=== PATIENT | female | born 1965 | race Caucasian/White ===

== ENCOUNTER → 2018-11-09 14:10 | Outpatient (CLI) | payer OTHER, SELFPAY ==
--- NOTE | 2018-11-09 | DI.MG.S_ITS ---
BILATERAL DIGITAL SCREENING MAMMOGRAM 3D/2D WITH CAD: 11/09/2018 CLINICAL: Routine screening. Comparison is made to exams dated: 06/06/2016 mammogram, 10/21/2017 mammogram - [facility], and 10/28/2014 mammogram - [facility]. There are scattered fibroglandular elements in both breasts. Current study was also evaluated with a Computer Aided Detection (CAD) system. No significant masses, calcifications, or other findings are seen in either breast. There has been no significant interval change. IMPRESSION: NEGATIVE There is no mammographic evidence of malignancy. A 1 year screening mammogram is recommended. This exam was interpreted at Station ID: [id number]. NOTE: For mammograms, a report in lay terms will be sent to the patient. Approximately 15% of breast malignancies will not be visualized mammographically. In the management of a palpable breast mass, a negative mammogram must not discourage biopsy of a clinically suspicious lesion. Electronically Signed By: France hightower/audelia:11/09/2018 16:56:17 letter sent: Normal Exam ACR BI-RADS Category 1: Negative 3341F
== END ==
PROVIDERS: PCP Family Medicine; Visit Provider Family Medicine
DX: Z12.31 Encounter for screening mammogram for malignant neoplasm of breast (principal)
CPT/HCPCS: 77063; 77067

== ENCOUNTER → 2021-06-14 15:04 | Outpatient (CLI) | payer OTHER, SELFPAY | PROVIDERS: PCP Family Medicine; Referring Provider Family Medicine; Visit Provider Family Medicine | DX: R30.0 Dysuria (principal) | CPT/HCPCS: 87086 ==

== ENCOUNTER → 2021-10-20 14:13 | Outpatient (CLI) | payer OTHER, SELFPAY ==
--- NOTE | 2021-10-20 | DI.MG.S_ITS ---
BILATERAL DIGITAL SCREENING MAMMOGRAM 3D/2D WITH CAD: 10/20/2021 CLINICAL: Routine screening. Comparison is made to exams dated: 11/09/2018 mammogram, 10/21/2017 mammogram, and 06/06/2016 mammogram - [facility]. There are scattered fibroglandular elements in both breasts. Current study was also evaluated with a Computer Aided Detection (CAD) system. There is a new asymmetry in the right breast anterior depth medial region seen on the craniocaudal view only. There also is a new asymmetry in the right breast middle depth medial region seen on the craniocaudal view only. No other significant masses, calcifications, or other findings are seen in either breast. IMPRESSION: INCOMPLETE: NEEDS ADDITIONAL IMAGING EVALUATION The new asymmetry in the right breast anterior depth medial region seen on the craniocaudal view only is indeterminate. Additional views with possible ultrasound are recommended. The new asymmetry in the right breast middle depth medial region seen on the craniocaudal view only is indeterminate. Additional views with possible ultrasound are recommended. This exam was interpreted at Station ID: [id number]. NOTE: For mammograms, a report in lay terms will be sent to the patient. Approximately 15% of breast malignancies will not be visualized mammographically. In the management of a palpable breast mass, a negative mammogram must not discourage biopsy of a clinically suspicious lesion. Electronically Signed By: Alex Coyne M.D., jr/audelia:10/20/2021 15:40:03 letter sent: Additional Imaging Needed ACR BI-RADS Category 0: Incomplete 3340F
== END ==
PROVIDERS: PCP Physician Assistant; Referring Provider Physician Assistant; Visit Provider Physician Assistant
DX: Z12.31 Encounter for screening mammogram for malignant neoplasm of breast (principal)
CPT/HCPCS: 77063; 77067

== ENCOUNTER → 2021-10-21 09:53 | Outpatient (CLI) | payer OTHER, SELFPAY ==
[2021-10-21 18:42] LABS: Add Manual Diff / Slide Review NO; Basophils Absolute Auto 100 /uL (0-100); Basophils Percent Auto 0.6 % (0-2); Eosinophils Absolute Auto 100 /uL (0-450); Eosinophils Percent Auto 0.9 % (2-4); Hematocrit 42.3 % (36-46); Lymphocytes Absolute Auto 1700 /uL (1100-4500); Lymphocytes Percent Auto 17.9 % (25-40); Mean Corpuscular HGB Conc 33.1 % (30-36); Mean Corpuscular Hemoglobin 30.7 PG (26-34); Mean Corpuscular Volume 92.8 fL (80-100); Monocytes Absolute Auto 600 /uL (0-900); Monocytes Percent Auto 6.5 % (3-14); Neutrophils Absolute Auto 6800 /uL (1500-7000); Neutrophils Percent Auto 74.1 % (50-75); Platelet Count 350 X10^3/uL (150-400); Red Blood Cell Count 4.56 X10^6/uL (4.0-5.2); White Blood Cell Count 9.2 X10^3/uL (4.5-11.0)
[2021-10-21 19:02] LABS: Alanine Aminotransferase 32 IU/L (<35); Albumin 4.2 g/dL (3.5-5.0); Albumin Globulin Ratio 1.4 (1.0-2.8); Alkaline Phosphatase 114 U/L (38-126); Aspartate Aminotransferase 28 IU/L (14-36); Bilirubin Total 0.7 mg/dL (0.2-1.3); Blood Urea Nitrogen 16 mg/dL (7-17); Calcium 9.4 mg/dL (8.4-10.2); Carbon Dioxide 27 mmol/L (22-32); Chloride 105 mmol/L (98-107); Cholesterol 245 mg/dL (140-199); Estimated Glomerular Filt Rate > 60 mL/min (>60); Globulin 3.1 g/dL (1.7-4.1); Glucose 107 mg/dL (70-100); HDL Cholesterol 88 mg/dL (40-60); HEMOLYSIS < 15 (0-50); LDL Cholesterol Calculated 141 mg/dL (<100); Potassium 4.3 mmol/L (3.4-5.1); Sodium 139 mmol/L (137-145); Total Protein 7.3 g/dL (6.3-8.2); Triglycerides 82 mg/dL (35-150)
[2021-10-25 09:25] LABS: TSH w/ Reflex to FT4 1.58 uIU/mL (0.47-4.68)
== END ==
PROVIDERS: PCP Physician Assistant; Visit Provider Physician Assistant
DX: Z13.220 Encounter for screening for lipoid disorders (principal); Z79.899 Other long term (current) drug therapy
CPT/HCPCS: 80053; 80061; 84443; 85025

== ENCOUNTER → 2021-12-01 09:35 | Outpatient (CLI) | payer OTHER, SELFPAY ==
--- NOTE | 2021-12-01 | DI.MG.S_ITS ---
UNILATERAL RIGHT DIGITAL DIAGNOSTIC MAMMOGRAM 3D/2D WITH ADDITIONAL VIEWS: 12/01/2021 CLINICAL: Patient returns today to evaluate an asymmetries in the right breast. Comparison is made to exams dated: 10/20/2021 mammogram, 11/09/2018 mammogram, and 10/21/2017 mammogram - [facility]. There are scattered fibroglandular elements in right breast. There is a focal asymmetry in the right breast at 3 o'clock middle depth. This is seen in additional views. There also is a focal asymmetry in the right breast at 4 o'clock posterior depth. This is seen in additional views. No other significant masses or calcifications are seen in the breast. IMPRESSION: INCOMPLETE: NEEDS ADDITIONAL IMAGING EVALUATION The focal asymmetry in the right breast at 3 o'clock middle depth is indeterminate. The focal asymmetry in the right breast at 4 o'clock posterior depth is indeterminate. A targeted ultrasound of the right breast is recommended and will be performed immediately following this exam. This exam was interpreted at Station ID: [id number]. NOTE: For mammograms, a report in lay terms will be sent to the patient. Approximately 15% of breast malignancies will not be visualized mammographically. In the management of a palpable breast mass, a negative mammogram must not discourage biopsy of a clinically suspicious lesion. Electronically Signed By: Shira shipman/:12/01/2021 11:09:31 ACR BI-RADS Category 0: Incomplete 3340F
--- NOTE | 2021-12-01 09:36 | DI.US.S_ITS ---
ULTRASOUND OF RIGHT BREAST: 12/01/2021 CLINICAL: Patient returns today to evaluate a focal asymmetry in the right breast. Comparison is made to exams dated: 12/01/2021 mammogram and 10/20/2021 mammogram - [facility]. Color flow ultrasound of the right breast was performed on the areas of interest. Villarreal scale images of the real-time examination were reviewed. There is a benign irregular cyst in the right breast at 3 o'clock middle depth. This irregular cyst is anechoic. This correlates with mammography findings. There also is a benign cluster of 2 simple cysts in the right breast at 4 o'clock posterior depth. This cluster of simple cysts is anechoic. This correlates with mammography findings. IMPRESSION: BENIGN There is no sonographic evidence of malignancy. The irregular cyst in the right breast at 3 o'clock middle depth is benign. The cluster of 2 simple cysts in the right breast at 4 o'clock posterior depth is benign. A 1 year screening mammogram is recommended. This exam was interpreted at Station ID: [id number]. Electronically Signed By: Shira shipman/:12/01/2021 11:11:36 letter sent: Normal Exam Ultrasound BI-RADS: 2 Benign
== END ==
PROVIDERS: PCP Physician Assistant; Referring Provider Physician Assistant; Visit Provider Physician Assistant
DX: R92.8 Other abnormal and inconclusive findings on diagnostic imaging of breast (principal); N60.01 Solitary cyst of right breast; N64.89 Other specified disorders of breast
CPT/HCPCS: 76642; 77065; G0279

== ENCOUNTER 2022-03-07 11:57 | Emergency (ER) | payer OTHER, SELFPAY ==
[2022-03-07 12:36] VITALS: BP 132/74; PULSE 80; RESP 16; TEMP 36.4; O2SAT 100; BMI 24.3
[2022-03-07 18:33] VITALS: BP 129/80; PULSE 70; RESP 16; O2SAT 99
--- NOTE | 2022-03-07 19:09 | ED_ITS ---
HPI - Back Pain/Injury General Chief Complaint: Back Pain/Injury Stated Complaint: Back pain lower left, Nausea Time Seen by Provider: 03/07/22 18:46 Source: patient Mode of arrival: Family Vehicle Limitations: no limitations History of Present Illness HPI Narrative: 57-year-old female who is here for evaluation of left lower back pain. She states the symptoms been going on for the past week. She has been taking Naprosyn at home. 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 Does have some discomfort in the front of both of her legs. The pain is not worse with touching but more with moving. No fevers. No urinary symptoms. No change in bowel habits. No skin changes. She has had back pain requiring surgery in the past. Related Data Home Medications Medication Instructions Recorded Confirmed Fluticasone Propionate (FLONASE) 1 spray intranasal QDAY ##0 04/05/12 10/25/21 albuterol sulfate 90 mcg/actuation 2 puff INH ##8.5 04/05/12 10/25/21 aerosol inhaler (Proventil HFA) Previous Rx's Medication Instructions Recorded acyclovir 400 mg tablet See Rx Instructions .Route 10/18/21 .COMPLEX #50 tabs duloxetine 30 mg capsule,delayed 30 mg PO DAILY #90 caps 12/22/21 release cyclobenzaprine 10 mg tablet 10 mg PO TID PRN muscle spasm #21 03/07/22 tabs lidocaine 5 % topical patch 1 patch topical DAILY #15 ea 03/07/22 prednisone 20 mg tablet 20 mg PO DAILY 7 days #7 tabs 03/07/22 zolpidem 5 mg tablet 5 mg PO BEDTIME PRN insomnia #30 03/07/22 tabs Allergies Allergy/AdvReac Type Severity Reaction Status Date / Time oxycodone Allergy Unknown Verified 06/14/21 14:46 acetaminophen [From Vicodin] AdvReac Intermediate Hallucinati Verified 06/14/21 14:46 ons hydrocodone [From Vicodin] AdvReac Intermediate Hallucinati Verified 06/14/21 14:46 ons LATEX Allergy Severe ASTHMA AND Uncoded 06/14/21 14:46 ITCHING PCN (PENICILLIN) Allergy Severe HIVES Uncoded 06/14/21 14:46 SULFA Allergy Intermediate RASH Uncoded 06/14/21 14:46 Review of Systems Constitutional Constitutional: Denies fever(s) and Denies headache(s) ENT Ears, Nose, Mouth, and Throat: Denies headache(s) Cardiovascular Cardiovascular: Reports system reviewed and no additional complaints, except as documented Respiratory Respiratory: Reports system reviewed and no additional complaints, except as documented Gastrointestinal Gastrointestinal: Reports system reviewed and no additional complaints, except as documented Genitourinary Genitourinary: Reports system reviewed and no additional complaints, except as documented Musculoskeletal Musculoskeletal: Reports system reviewed and no additional complaints, except as documented Integumentary/Breasts Skin/Breast: Reports system reviewed and no additional complaints, except as documented Neurologic Neurologic: Reports system reviewed and no additional complaints, except as documented and Denies headache(s) Hematologic/Lymphatic On Anticoagulants: No Patient History Medical History Insomnia, unspecified Plantar wart Uterine myoma Social History Smoking Status: Never smoker Smoking Status: Never smoker alcohol intake frequency: holidays/special occasions only Substance Use Type: does not use Exam Initial Vital Signs Initial Vital Signs: Vital Signs Temperature 97.6 F 03/07/22 12:36 Pulse Rate 80 03/07/22 12:36 Respiratory Rate 16 03/07/22 12:36 Blood Pressure 132/74 03/07/22 12:36 Pulse Oximetry 100 03/07/22 12:36 Oxygen Delivery Method 03/07/22 12:36 [facility] Head: normal to inspection and normocephalic Resp Effort & Inspection: normal respiratory effort Cardio Rate: regular rate GI Inspection: normal to inspection Palpation: soft and No tender Back/Spine/Pelvis Thoracic/Lumbar Spine: No paraspinal tenderness and No lumbar spinal tenderness Skin General: no rashes or lesions noted Neuro General: patient alert, patient awake and moves all extremities Sensory Exam: no sensory deficits noted Extrem Other: No tenderness to palpation of her lumbar spine. We can reproduce the the discomfort by flexing the hip. Some discomfort with internal and external rotation. Left knee is unremarkable. Course Orders Ordered: ED Orders 03/07/22 19:10 XR lumbar spine 2-3V Stat 03/07/22 20:25 Urine Culture Stat Urine Microscopic Stat Discontinued Medications Ketorolac Tromethamine (Ketorolac 30 Mg/Ml Vial) 30 mg IM NOW ONE Stop: 03/07/22 19:11 Last Admin: 03/07/22 19:51 Dose: 30 mg Documented By: MARJORIE Prednisone (Prednisone 20 Mg Tablet) 20 mg PO NOW ONE Stop: 03/07/22 21:05 Last Admin: 03/07/22 21:12 Dose: 20 mg Documented By: AT Vital Signs Vital signs: Vital Signs - 8 hr 03/07/22 18:33 Pulse Rate 70 Respiratory Rate 16 Blood Pressure 129/80 Pulse Oximetry 99 Oxygen Delivery Method Room Air MDM - Back Pain/Injury Lab Data Labs: Lab Results 03/07/22 Range/Units 20:25 Urine RBC 5-10/hpf H (0-5/HPF) Urine WBC 10-30/hpf H (0-5/HPF) Ur Squamous Epith Cells 0-1 /hpf (0-5/HPF) Urine Bacteria Occasional (0-1) (None) Ur Culture Indicated? Specimen cultured Urine Dip Bedside Urine Glucose Negative Bedside Urine Bilirubin - Negative Bedside Urine Ketone - Negative Urine Specific [place] 1.015 Bedside Urine Occult Blood - Negative Bedside Urine pH 6.0 Bedside Urine Protein +/- 15 Bedside Urine Urobilinogen - Negative Bedside Urine Nitrite - Negative Bedside Urine Leukocytes ++ 125 Esterase Imaging Data lumbar spine X-ray: Radiologist's Impression: [place] [address] XRay Report Signed Patient: Magda Jordan MR#: [id number] : 1965 Acct:[id number] Age/Sex: 57 / F Date of Service: 03/07/22 Loc: ED Accession Number: [id number] ?? Procedure: XR lumbar spine 2-3V Ordering Provider: Narayan Gómez D.O. PROCEDURE:? XR LUMBAR SPINE 2-3V ? INDICATIONS:? LBP hx of surgery ? TECHNIQUE:? Three views of the lumbar spine were acquired.? ? COMPARISON:? None. ? FINDINGS:? ? Bones:? Five [id number] vertebrae are present.? No vertebral body fractures.? Moderately severe disc height loss at L5-S1.? There is normal bony alignment.? No suspicious bony lesions.? ? Soft tissues:? Overlying bowel gas pattern is normal.? No suspicious soft tissue calcifications.? ? ? IMPRESSION:? Severe disc height loss L5-S1.? Otherwise normal lumbar spine. ? ? Dictated by: France Tenorio M.D. on 03/07/2022 at 20:07 ? ? Approved by: France Tenorio M.D. on 03/07/2022 at 20:10?? MDM Narrative Medical decision making narrative: No acute changes on the lumbar spine x-ray. Low suspicion for fracture. Low suspicion for cauda equina. No indication for MRI out of the emergency department. Will provide symptom treatment. Have patient follow-up with primary doctor to discuss further outpatient treatment/evaluation to include potentially physical therapy/orthopedics or advanced imaging such as MRI. She expressed understanding and agreement. Discharge Plan Departure Patient Disposition: Home Clinical Impression: Low back pain Instructions: DI for Low Back Pain Activity Restrictions/Additional Instructions: I do recommend that you take the medications as directed. Contact your primary doctor as he will most likely need referrals for further evaluation treatment to include seeing physical therapy and potentially further advanced radiologic studies such as an MRI. Return to the emergency department for any new symptoms. Prescriptions: New prednisone 20 mg tablet 20 mg PO DAILY 7 Days Qty: 7 0RF cyclobenzaprine 10 mg tablet 10 mg PO TID PRN (Reason: muscle spasm) Qty: 21 0RF lidocaine 5 % adhesive patch,medicated 1 patch topical DAILY Qty: 15 0RF Rx Instructions: leave on most painful area for up to 12 hrs No Action albuterol sulfate [Proventil HFA] 90 MCG/PUFF HFA aerosol inhaler 2 puff INH Qty: 8.5 Fluticasone Propionate (FLONASE) 1 spray Intranasal QDAY Qty: 0 acyclovir 400 mg tablet See Rx Instructions .ROUTE .COMPLEX Qty: 50 3RF Dose Instruction: TAKE ONE TABLET BY MOUTH EVERY 4 HOURS WHILE AWAKE AT FIRST ONSET OF COLD SORE Rx Instructions: TAKE ONE TABLET BY MOUTH EVERY 4 HOURS WHILE AWAKE AT FIRST ONSET OF COLD SORE duloxetine 30 mg capsule,delayed release(DR/EC) 30 mg PO DAILY Qty: 90 1RF zolpidem 5 mg tablet 5 mg PO BEDTIME PRN (Reason: insomnia) Qty: 30 0RF Referrals: Demetria Carpenter PA-C [Primary Care Provider] - Visit Report Forms: Patient Portal/API
--- NOTE | 2022-03-07 19:10 | DI.RAD.S_ITS ---
PROCEDURE: XR LUMBAR SPINE 2-3V INDICATIONS: LBP hx of surgery TECHNIQUE: Three views of the lumbar spine were acquired. COMPARISON: None. FINDINGS: Bones: Five [id number] vertebrae are present. No vertebral body fractures. Moderately severe disc height loss at L5-S1. There is normal bony alignment. No suspicious bony lesions. Soft tissues: Overlying bowel gas pattern is normal. No suspicious soft tissue calcifications. IMPRESSION: Severe disc height loss L5-S1. Otherwise normal lumbar spine. Dictated by: France Tenorio M.D. on 03/07/2022 at 20:07 Approved by: France Tenorio M.D. on 03/07/2022 at 20:10
[2022-03-07] MEDS: KETOROLAC 30 MG/ML VIAL IM (19:51)
[2022-03-07 21:01] LABS: Bacteria Urine Occasional (0-1); Culture Indicated Urine Specimen Cultured; RBC Urine 5-10/HPF (0-5/HPF); Squamous Epithelial Cell Urine 0-1 /HPF (0-5/HPF); WBC Urine 10-30/HPF (0-5/HPF)
[2022-03-07] MEDS: predniSONE 20 MG TABLET PO (21:12)
== END 2022-03-07 21:16 | disposition home or self-care (01) ==
PROVIDERS: Emergency Provider Emergency Medicine; PCP Physician Assistant
DX: M54.50 Low back pain, unspecified (principal)
CPT/HCPCS: 72100; 81003; 81015; 87086; 96372; 99283; J1885

== ENCOUNTER → 2022-05-04 11:08 | Outpatient (CLI) | payer OTHER, SELFPAY ==
[2022-05-04 20:46] LABS: Add Manual Diff / Slide Review NO; Basophils Absolute Auto 100 /uL (0-100); Basophils Percent Auto 1.1 % (0-2); Eosinophils Absolute Auto 200 /uL (0-450); Eosinophils Percent Auto 2.6 % (2-4); Hematocrit 36.6 % (36-46); Hemoglobin 11.4 g/dL (12.0-16.0); Lymphocytes Absolute Auto 2900 /uL (1100-4500); Lymphocytes Percent Auto 43.1 % (25-40); Mean Corpuscular HGB Conc 31.1 % (30-36); Monocytes Absolute Auto 400 /uL (0-900); Monocytes Percent Auto 6.6 % (3-14); Neutrophils Absolute Auto 3200 /uL (1500-7000); Neutrophils Percent Auto 46.6 % (50-75); Platelet Count 439 X10^3/uL (150-400); White Blood Cell Count 6.8 X10^3/uL (4.5-11.0)
[2022-05-04 20:50] LABS: Alanine Aminotransferase 26 IU/L (<35); Albumin 4.5 g/dL (3.5-5.0); Albumin Globulin Ratio 1.4 (1.0-2.8); Alkaline Phosphatase 121 U/L (38-126); Aspartate Aminotransferase 37 IU/L (14-36); BUN Creatinine Ratio 18.7 (6-22); Bilirubin Total 0.3 mg/dL (0.2-1.3); Blood Urea Nitrogen 14 mg/dL (7-17); Calcium 10.2 mg/dL (8.4-10.2); Carbon Dioxide 27 mmol/L (22-32); Chloride 102 mmol/L (98-107); Estimated Glomerular Filt Rate > 60 mL/min (>60); Globulin 3.3 g/dL (1.7-4.1); Glucose 93 mg/dL (70-100); HEMOLYSIS < 15 (0-50); Potassium 4.9 mmol/L (3.4-5.1); Sodium 141 mmol/L (137-145); Total Protein 7.8 g/dL (6.3-8.2)
[2022-05-04 21:20] LABS: TSH w/ Reflex to FT4 3.74 uIU/mL (0.47-4.68)
[2022-05-04 21:23] LABS: Ferritin 25 ng/mL (11-264)
== END ==
PROVIDERS: PCP Physician Assistant; Visit Provider Physician Assistant
DX: D64.9 Anemia, unspecified (principal); R42 Dizziness and giddiness
CPT/HCPCS: 80053; 82728; 84443; 85025

== ENCOUNTER → 2022-09-19 08:08 | Outpatient (CLI) | payer OTHER, SELFPAY ==
[2022-09-19 20:46] LABS: Add Manual Diff / Slide Review NO; Basophils Absolute Auto 100 /uL (0-100); Basophils Percent Auto 0.6 % (0-2); Eosinophils Absolute Auto 100 /uL (0-450); Eosinophils Percent Auto 1.4 % (2-4); Hematocrit 41.2 % (36-46); Hemoglobin 13.6 g/dL (12.0-16.0); Lymphocytes Absolute Auto 4200 /uL (1100-4500); Lymphocytes Percent Auto 42.2 % (25-40); Mean Corpuscular Hemoglobin 30.3 PG (26-34); Mean Corpuscular Volume 92.1 fL (80-100); Monocytes Absolute Auto 500 /uL (0-900); Monocytes Percent Auto 5.3 % (3-14); Neutrophils Absolute Auto 5100 /uL (1500-7000); Neutrophils Percent Auto 50.5 % (50-75); Platelet Count 369 X10^3/uL (150-400); Red Blood Cell Count 4.47 X10^6/uL (4.0-5.2); Red Cell Distribution Width 15.6 % (11.6-14.8)
[2022-09-19 20:53] LABS: HEMOLYSIS < 15 (0-50); Iron 91 ug/dL (37-170)
[2022-09-19 20:57] LABS: Cholesterol 225 mg/dL (140-199); HDL Cholesterol 73 mg/dL (40-60); LDL Cholesterol Calculated 138 mg/dL (<100); Triglycerides 68 mg/dL (35-150)
[2022-09-19 20:58] LABS: Alanine Aminotransferase 23 IU/L (<35); Albumin 3.8 g/dL (3.5-5.0); Albumin Globulin Ratio 1.2 (1.0-2.8); Alkaline Phosphatase 147 U/L (38-126); Aspartate Aminotransferase 23 IU/L (14-36); BUN Creatinine Ratio 22.5 (6-22); Bilirubin Total 0.5 mg/dL (0.2-1.3); Blood Urea Nitrogen 16 mg/dL (7-17); Calcium 9.5 mg/dL (8.4-10.2); Carbon Dioxide 30 mmol/L (22-32); Chloride 104 mmol/L (98-107); Estimated Glomerular Filt Rate > 60 mL/min (>60); Globulin 3.2 g/dL (1.7-4.1); Glucose 95 mg/dL (70-100); HEMOLYSIS < 15 (0-50); Potassium 4.1 mmol/L (3.4-5.1); Sodium 140 mmol/L (137-145)
[2022-09-19 21:05] LABS: Percent Iron Saturation 27 % (15-50); Total Iron Binding Capacity 335 ug/dL (265-497); Transferrin 260 mg/dL (206-381)
[2022-09-19 22:56] LABS: Ferritin 44 ng/mL (11-264)
== END ==
PROVIDERS: PCP Physician Assistant; Visit Provider Physician Assistant
DX: D64.9 Anemia, unspecified (principal); E78.00 Pure hypercholesterolemia, unspecified
CPT/HCPCS: 80053; 80061; 82728; 83540; 83550; 85025

== ENCOUNTER → 2022-09-23 09:44 | Outpatient (CLI) | payer OTHER, SELFPAY | PROVIDERS: PCP Physician Assistant; Visit Provider Physician Assistant Medical | DX: N39.0 Urinary tract infection, site not specified (principal) | CPT/HCPCS: 87086 ==

== ENCOUNTER → 2022-10-06 11:55 | Outpatient (CLI) | payer OTHER, SELFPAY ==
[2022-10-06 21:12] LABS: Bacteria Urine None Seen; Culture Indicated Urine Cult Not Indicated; RBC Urine None Seen (0-5/HPF); WBC Urine None Seen (0-5/HPF)
== END ==
PROVIDERS: PCP Physician Assistant; Visit Provider Physician Assistant Medical
DX: R31.9 Hematuria, unspecified (principal)
CPT/HCPCS: 81015

== ENCOUNTER → 2022-10-14 12:29 | Outpatient (CLI) | payer OTHER, SELFPAY | PROVIDERS: PCP Physician Assistant; Visit Provider Physician Assistant Medical | DX: N39.0 Urinary tract infection, site not specified (principal); R31.9 Hematuria, unspecified | CPT/HCPCS: 87086 ==

== ENCOUNTER → 2022-12-19 13:57 | Outpatient (CLI) | payer OTHER, SELFPAY ==
--- NOTE | 2022-12-19 14:00 | DI.MG.S_ITS ---
BILATERAL DIGITAL SCREENING MAMMOGRAM 3D/2D WITH CAD: 12/19/2022 CLINICAL: Routine screening. Comparison is made to exams dated: 10/20/2021 mammogram, 11/09/2018 mammogram, and 10/21/2017 mammogram - [facility]. There are scattered areas of fibroglandular density in both breasts (category b / 25%-50% glandular tissue). Current study was also evaluated with a Computer Aided Detection (CAD) system. No significant masses, calcifications, or other findings are seen in either breast. There has been no significant interval change. IMPRESSION: NEGATIVE There is no mammographic evidence of malignancy. A 1 year screening mammogram is recommended. Based on the Tyrer Cuzick model (a risk assessment model) the patient's lifetime risk is 7.3% and her 10 year risk is 2.2%. According to the ACR, ACS, and NCCN guidelines, an annual breast MRI exam along with mammogram is recommended if the patient's lifetime risk is 20% or greater. This exam was interpreted at Station ID: [id number]. NOTE: For mammograms, a report in lay terms will be sent to the patient. Approximately 15% of breast malignancies will not be visualized mammographically. In the management of a palpable breast mass, a negative mammogram must not discourage biopsy of a clinically suspicious lesion. Electronically Signed By: David godoy/audelia:12/19/2022 14:40:59 letter sent: Normal Exam ACR BI-RADS Category 1: Negative 3341F
== END ==
PROVIDERS: PCP Physician Assistant; Referring Provider Physician Assistant; Visit Provider Physician Assistant
DX: Z12.31 Encounter for screening mammogram for malignant neoplasm of breast (principal)
CPT/HCPCS: 77063; 77067

== ENCOUNTER → 2023-01-02 14:32 | Outpatient (CLI) | payer OTHER, SELFPAY ==
[2023-01-02 20:12] LABS: Add Manual Diff / Slide Review NO; Basophils Absolute Auto 0 /uL (0-100); Basophils Percent Auto 0.4 % (0-2); Eosinophils Absolute Auto 200 /uL (0-450); Eosinophils Percent Auto 1.5 % (2-4); Hematocrit 45.1 % (36-46); Hemoglobin 15.2 g/dL (12.0-16.0); Lymphocytes Absolute Auto 3100 /uL (1100-4500); Lymphocytes Percent Auto 31.9 % (25-40); Mean Corpuscular HGB Conc 33.7 % (30-36); Mean Corpuscular Hemoglobin 32.2 PG (26-34); Mean Corpuscular Volume 95.6 fL (80-100); Monocytes Absolute Auto 600 /uL (0-900); Neutrophils Absolute Auto 5900 /uL (1500-7000); Neutrophils Percent Auto 60.2 % (50-75); Platelet Count 340 X10^3/uL (150-400); Red Blood Cell Count 4.72 X10^6/uL (4.0-5.2); Red Cell Distribution Width 13.9 % (11.6-14.8); White Blood Cell Count 9.8 X10^3/uL (4.5-11.0)
[2023-01-02 20:18] LABS: Gamma Glutamyl Transpeptidase 19 U/L (12-43)
[2023-01-02 20:19] LABS: HEMOLYSIS < 15 (0-50); Iron 54 ug/dL (37-170)
[2023-01-02 20:20] LABS: Alkaline Phosphatase 132 U/L (38-126); Cholesterol 244 mg/dL (140-199); HDL Cholesterol 61 mg/dL (40-60); LDL Cholesterol Calculated 158 mg/dL (<100); Triglycerides 123 mg/dL (35-150)
[2023-01-02 20:30] LABS: Percent Iron Saturation 15 % (15-50); Total Iron Binding Capacity 354 ug/dL (265-497); Transferrin 249 mg/dL (206-381)
[2023-01-02 20:54] LABS: Ferritin 27 ng/mL (11-264)
== END ==
PROVIDERS: PCP Physician Assistant; Visit Provider Physician Assistant
DX: R74.8 Abnormal levels of other serum enzymes (principal); D64.9 Anemia, unspecified; E78.5 Hyperlipidemia, unspecified
CPT/HCPCS: 80061; 82728; 82977; 83540; 83550; 83915; 84075; 85025

== ENCOUNTER → 2023-02-01 14:26 | Outpatient (CLI) | payer OTHER, SELFPAY ==
[2023-02-01 19:48] LABS: Alkaline Phosphatase 131 U/L (38-126)
[2023-02-01 20:23] LABS: TSH w/ Reflex to FT4 1.36 uIU/mL (0.47-4.68)
[2023-02-03 18:12] LABS: Anti Thyroglobulin Antibody <1.0 IU/mL (0.0-0.9); Thyroid Peroxidase Antibodies 19 IU/mL (0-34)
[2023-02-07 09:56] LABS: Gamma Glutamyl Transpeptidase 16 U/L (12-43)
== END ==
PROVIDERS: PCP Physician Assistant; Visit Provider Physician Assistant
DX: R53.83 Other fatigue (principal)
CPT/HCPCS: 82977; 84075; 84443; 84481; 86376; 86800

== ENCOUNTER → 2023-04-17 15:16 | Outpatient (CLI) | payer OTHER, SELFPAY | PROVIDERS: PCP Physician Assistant; Visit Provider Family Medicine | DX: N39.0 Urinary tract infection, site not specified (principal) | CPT/HCPCS: 87086 ==

== ENCOUNTER → 2023-08-28 15:24 | Outpatient (CLI) | payer OTHER, SELFPAY | PROVIDERS: PCP Physician Assistant; Visit Provider Family Medicine | DX: R39.89 Other symptoms and signs involving the genitourinary system (principal) | CPT/HCPCS: 87077; 87086; 87186 ==

== ENCOUNTER → 2023-09-04 12:41 | Outpatient (CLI) | payer OTHER, SELFPAY | PROVIDERS: PCP Physician Assistant; Visit Provider Physician Assistant | DX: N39.0 Urinary tract infection, site not specified (principal) | CPT/HCPCS: 87086 ==

== ENCOUNTER → 2024-06-03 17:22 | Outpatient (CLI) | payer OTHER, MEDICAID, SELFPAY | PROVIDERS: PCP Physician Assistant; Visit Provider Family Medicine | DX: N39.0 Urinary tract infection, site not specified (principal) | CPT/HCPCS: 87086 ==

== ENCOUNTER → 2024-09-03 09:12 | Outpatient (CLI) | payer OTHER, SELFPAY ==
[2024-09-03 19:47] LABS: Add Manual Diff / Slide Review NO; Basophils Absolute Auto 0 /uL (0-100); Basophils Percent Auto 0.6 % (0-2); Eosinophils Absolute Auto 200 /uL (0-450); Eosinophils Percent Auto 2.6 % (2-4); Hematocrit 44.1 % (36-46); Hemoglobin 14.6 g/dL (12.0-16.0); Lymphocytes Absolute Auto 3300 /uL (1100-4500); Lymphocytes Percent Auto 47.2 % (25-40); Mean Corpuscular HGB Conc 33.1 % (30-36); Mean Corpuscular Hemoglobin 32.1 PG (26-34); Mean Corpuscular Volume 96.8 fL (80-100); Monocytes Absolute Auto 400 /uL (0-900); Monocytes Percent Auto 6.2 % (3-14); Neutrophils Absolute Auto 3000 /uL (1500-7000); Neutrophils Percent Auto 43.4 % (50-75); Platelet Count 329 X10^3/uL (150-400); Red Blood Cell Count 4.55 X10^6/uL (4.0-5.2); Red Cell Distribution Width 13.9 % (11.6-14.8)
[2024-09-03 19:56] LABS: HEMOLYSIS < 15 (0-50); Iron 86 ug/dL (37-170)
[2024-09-03 20:02] LABS: Alanine Aminotransferase 20 IU/L (<35); Albumin 4.2 g/dL (3.5-5.0); Albumin Globulin Ratio 1.4 (1.0-2.8); Alkaline Phosphatase 108 U/L (38-126); Aspartate Aminotransferase 26 IU/L (14-36); BUN Creatinine Ratio 17.6 (6-22); Bilirubin Total 0.6 mg/dL (0.2-1.3); Blood Urea Nitrogen 15 mg/dL (7-17); Calcium 9.5 mg/dL (8.4-10.2); Carbon Dioxide 26 mmol/L (22-32); Chloride 104 mmol/L (98-107); Cholesterol 256 mg/dL (140-199); Estimated Glomerular Filt Rate > 60 mL/min (>60); Globulin 2.9 g/dL (1.7-4.1); Glucose 104 mg/dL (70-100); HDL Cholesterol 61 mg/dL (40-60); HEMOLYSIS 17 (0-50); LDL Cholesterol Calculated 166 mg/dL (<100); Potassium 4.7 mmol/L (3.4-5.1); Sodium 139 mmol/L (137-145); Total Protein 7.1 g/dL (6.3-8.2); Triglycerides 144 mg/dL (35-150)
[2024-09-03 20:11] LABS: Percent Iron Saturation 27 % (15-50); Total Iron Binding Capacity 317 ug/dL (265-497); Transferrin 263 mg/dL (206-381)
[2024-09-03 20:17] LABS: Free T4, Direct Thyroxine 0.91 ng/dL (0.78-2.19)
[2024-09-03 20:30] LABS: Thyroid Stimulating Hormone 3.34 uIU/mL (0.47-4.68)
[2024-09-03 20:47] LABS: HIV 1 & 2 Ab/Ag 4th Gen Combo NEGATIVE (NEGATIVE); Hep C Virus Ab w/Reflex Quant NEGATIVE s/c (NEGATIVE)
[2024-09-03 20:59] LABS: Ferritin 23 ng/mL (11-264)
== END ==
PROVIDERS: PCP Physician Assistant; Visit Provider Physician Assistant
DX: E78.5 Hyperlipidemia, unspecified (principal); D64.9 Anemia, unspecified; E78.00 Pure hypercholesterolemia, unspecified; R53.83 Other fatigue; Z11.4 Encounter for screening for human immunodeficiency virus [HIV]; Z11.59 Encounter for screening for other viral diseases; Z12.11 Encounter for screening for malignant neoplasm of colon
CPT/HCPCS: 80053; 80061; 82274; 82306; 82728; 83540; 83550; 84439; 84443; 85025; 86803; 87389

== ENCOUNTER → 2024-09-09 12:18 | Outpatient (CLI) | payer OTHER, SELFPAY | PROVIDERS: PCP Physician Assistant; Visit Provider Nurse Practitioner Adult Health | DX: N89.8 Other specified noninflammatory disorders of vagina (principal) | CPT/HCPCS: 87480; 87510; 87660 ==

== ENCOUNTER → 2024-12-25 10:26 | Outpatient (CLI) | payer OTHER, SELFPAY | PROVIDERS: PCP Physician Assistant; Visit Provider Nurse Practitioner Adult Health | DX: B37.31 Acute candidiasis of vulva and vagina (principal) | CPT/HCPCS: 87798; 87801 ==